=== PATIENT | male | born 1965 | race Caucasian/White ===

== ENCOUNTER 2017-03-14 19:27 | Emergency (ER) | payer OTHER ==
[~2017-03-14] VITALS: Ht 175.3 cm; Wt 150.1 kg
[~2017-03-14 19:27] MED LIST: ADVAIR 250/501 DISK IH; ALBUTEROL1.25 MG/3 IH; ALBUTEROL2.5 MG/3 M IH; AMLODIPINE BESYL5 MG PO; AUGMENTIN875 MG PO; DELTASONE20 M1 PO; DULERA 100 MCG/13 GM IH; EXCEDRIN EXTRA1 EACH PO; EXFORGE 5/321 TABLET PO; HYCODAN SYRUP480 ML PO; LEVAQUIN750 MG PO; METFORMIN HCL500 M4 PO; MONTELUKAST SOD10 MG PO; NORVASC5 MG PO; PREDNISONE10 MG PO; PREDNISONE50 MG PO; SINGULAIR10 MG PO; VALSARTAN160 MG PO; VENTOLIN HFA18 GM IH; ZITHROMAX Z-PA250 MG PO
[2017-03-14] MEDS ORDERED: FLEXERIL10 MG PO (20:45)
[2017-03-14] MEDS ORDERED: NAPROSYN500 MG PO (20:45)
[2017-03-14 20:55] VITALS: BP 97/59
== END 2017-03-14 20:59 | disposition home or self-care (01) ==
LOC: EME 19:27 → EXP 19:27
DX: S16.1XXA Strain of muscle, fascia and tendon at neck level, initial encounter (principal); V43.52XA Car driver injured in collision with other type car in traffic accident, initial encounter
CPT/HCPCS: 99281; 99282

== ENCOUNTER 2017-07-21 19:44 | Emergency (ER) | payer OTHER ==
[~2017-07-21] VITALS: Ht 175.3 cm; Wt 146.5 kg
[~2017-07-21 19:44] MED LIST changes: +FLEXERIL10 MG PO; +NAPROSYN500 MG PO
[2017-07-21 20:33] LABS: HEMATOCRIT 37.3 % (38.0-50.0); MCH 27.3 PG (29.0-34.0); MCHC 33.2 G/DL (30.0-36.0); MEAN PLAT.VOLUME 9.5 uM^3 (9.0-12.4); PLATELET COUNT 328 K/uL (156-360); RBC DIS.WIDTH-CV 13.7 % (11.8-14.6); RBC DIS.WIDTH-SD 40.9 % (39-53); RED BLOOD COUNT 4.55 M/uL (4.00-5.50); WHITE BLOOD COUNT 16.3 K/uL (4.1-10.2)
[2017-07-21 20:41] LABS: CHLORIDE 102 mEq/L (99-109); POTASSIUM 3.8 mEq/L (3.7-5.4); SODIUM 137 mEq/L (136-147)
[2017-07-21 20:43] LABS: GLUCOSE 129 mg/dL (70-99)
[2017-07-21 20:44] LABS: ANION GAP 10 MEQ/L (2-14)
[2017-07-21 20:47] LABS: GFR ESTIMATE (CALCULATED) > 59 mL/min/ (58.99-99999)
[2017-07-21 20:48] LABS: UREA NITROGEN (BUN) 12 mg/dL (9-23)
[2017-07-21] MEDS ORDERED: VIBRAMYCIN100 MG PO (23:23)
[2017-07-21] MEDS ORDERED: ATROVENT 00.5 MG/2.5 IH (23:23)
[2017-07-21] MEDS ORDERED: PREDNISONE20 MG PO (23:23)
[2017-07-21 23:45] VITALS: BP 130/66
== END 2017-07-21 23:50 | disposition home or self-care (01) ==
LOC: EME 19:44
DX: J44.1 Chronic obstructive pulmonary disease with (acute) exacerbation (principal); J44.0 Chronic obstructive pulmonary disease with (acute) lower respiratory infection; J20.9 Acute bronchitis, unspecified; I10 Essential (primary) hypertension; I38 Endocarditis, valve unspecified; I51.7 Cardiomegaly
CPT/HCPCS: 71020; 80048; 85027; 93005; 94640; 99281; 99285; J2930

== ENCOUNTER 2017-07-30 14:22 | Emergency (ER) | payer OTHER ==
[~2017-07-30] VITALS: Ht 175.3 cm; Wt 144.0 kg
[~2017-07-30 14:22] MED LIST changes: +ATROVENT 00.5 MG/2.5 IH; +PREDNISONE20 MG PO; +VIBRAMYCIN100 MG PO
[2017-07-30 17:28] VITALS: BP 129/82
== END 2017-07-30 17:30 | disposition home or self-care (01) ==
LOC: EME 14:22
DX: K64.4 Residual hemorrhoidal skin tags (principal); J44.9 Chronic obstructive pulmonary disease, unspecified; I10 Essential (primary) hypertension
CPT/HCPCS: 99281; 99283